=== PATIENT | female | born 1965 | race Caucasian/White ===

== ENCOUNTER 2018-03-31 17:22 | Emergency (ER) | payer OTHER ==
[2018-03-31] MEDS: KETOROLAC 60 MG INJ IM (18:13)
== END 2018-03-31 19:08 | disposition home or self-care (01) ==
LOC: FTE 17:22
DX: S13.4XXA Sprain of ligaments of cervical spine, initial encounter (principal); F17.210 Nicotine dependence, cigarettes, uncomplicated; V43.62XA Car passenger injured in collision with other type car in traffic accident, initial encounter
CPT/HCPCS: 72040; 96372; 99284-25

== ENCOUNTER 2018-05-15 09:58 | Emergency (ER) | payer MEDICARE, OTHER ==
[2018-05-15] MEDS: ALBUTEROL 0.083% (NEB) 2.5 MG/3 ML AMP NEB (10:59)
[2018-05-15] MEDS ORDERED: LIDOCAINE 1% (MPF) 5 ML VIAL (11:54)
[2018-05-15] MEDS: LIDOCAINE 1% (MPF) 30 ML INJ INJ (11:57)
[2018-05-15] MEDS: CEFTRIAXONE 1 GM INJ IM (11:57)
[2018-05-15] MEDS: PROMETHAZINE 25 MG TAB PO (12:07)
== END 2018-05-15 12:29 | disposition home or self-care (01) ==
LOC: FTE 09:58
DX: R05 Cough (principal); F17.210 Nicotine dependence, cigarettes, uncomplicated
CPT/HCPCS: 71045; 94664; 96372; 99284-25